=== PATIENT | male | born 1970 | race Caucasian/White ===

== ENCOUNTER → 2021-11-03 | Outpatient (CLI) | payer OTHER ==
[~2021-11-03] MED LIST: ALL DAY ALLERGY10 M2 PO; AMLODIPINE BESYL5 MG PO; ASPIRIN EC81 MG PO; ATORVASTATIN CA20 MG PO; BACTRIM DS TAB1 EACH PO; CUBICIN 500 MG500 MG IV; CYCLOBENZAPRINE5 MG PO; FIASP PENF100 UNIT/1 SQ; GLUCOPHAGE1000 MG PO; HYDROCODON-ACE1 EAC4 PO; IBUPROFEN200 M1 PO; IMDUR ER TAB 3030 MG PO; LANTUS INS100 UTS/M1 SQ; LANTUS100 UNIT/1 SQ; LEVEMIR 10100 UNITS/ SQ; LOPRESSOR 25 MG25 MG PO; LOPRESSOR50 MG PO; LOSARTAN-HCTZ1 EAC1 PO; LOVENOX30 MG/0.3 SQ; METFORMIN HCL1000 M1 PO; NORCO 10-325 T1 EACH PO; OMEPRAZOLE20 MG PO; ONDANSETRON ODT8 MG PO; PAROXETINE HCL40 MG PO; PAXIL40 MG PO; PERCOCET 10-321 EACH PO; PREGABALIN75 MG PO; SYMBICORT 16010.2 GM INH; TRAMADOL HCL50 MG PO; VENTOLIN HFA 66.7 GM INH; VITAMIN B1 PO; ZOFRAN8 MG PO
== END ==
LOC: HEART 5 08:12
DX: I25.10 Atherosclerotic heart disease of native coronary artery without angina pectoris (principal); I25.2 Old myocardial infarction; I51.7 Cardiomegaly
CPT/HCPCS: 93306